=== PATIENT | female | born 1985 | race Caucasian/White ===

== ENCOUNTER 2016-06-30 22:50 | Inpatient (IN) ==
--- NOTE | 2016-06-30 23:06 | PROVIDER DOCUMENTATION ---
HPI-Female /OB/Breast - General Stated Complaint: PREG Time Seen by Provider: 06/30/16 23:03 Source: reports: patient, family Allergies/Adverse Reactions: Patient Allergies Allergy/AdvReac Type Severity Reaction Status Date / Time No Known Allergies Allergy Verified 06/30/16 23:04 Home Medications: Home Medication List Medication Instructions Recorded Confirmed Last Taken Type No Home Medications 06/30/16 06/30/16 Unknown History - History of Present Illness-Female /OB Nature of Presenting Problem: 31 year old WF, , LMP 5 yrs ago, approximately 7 mo gestation, no care, presents with c/o low abd pain, vaginal bleeding. Pt in mild distress with discomfort. Does patient report she is ?: Yes Quality of Pain: reports: dull Severity in ED: reports: moderate, severe Onset/Duration: reports: 4-6 hours ago Timing: reports: still present, constant, getting worse Context/Activities at Onset: reports: none Vaginal Symptoms: reports: abnormal bleeding, discharge Vaginal Bleeding Amount: Scant Related Symptoms: reports: vaginal fluid leakage, uterine contractions , pelvic pain, vaginal bleeding, abdominal pain Leakage of Fluid: uncertain Contraception: reports: none Similar Symptoms Previously?: Yes Recently seen or treated by another doctor?: No - LMP/ History Menstrual Status: abnormal period(s) : 6 Para: 3 : 2 Prior Delivery: vaginal Care: none Review of Systems - Adult - REVIEW OF SYSTEMS - ADULT Constitutional: reports: no symptoms reported. denies: chills, fever, fatique Eyes: reports: no symptoms reported. denies: discharge, blurred vision, double vision, redness Ears, Nose, Mouth & Throat: reports: no symptoms reported. denies: ear discharge, ear pain, nose pain, loose teeth, throat pain, throat swelling Cardiovascular: reports: no symptoms reported. denies: chest pain, palpitations , syncope Respiratory: reports: no symptoms reported. denies: chronic cough, cough, shortness of breath, wheezing Gastrointestinal: reports: see HPI, abdominal pain. denies: hematemesis, constipation, diarrhea, difficulty swallowing, frequent heartburn, nausea, poor appetite, rectal bleeding, vomiting Genitourinary: reports: see HPI, other. denies: dysuria, discharge, frequency, flank pain, frequent UTI's, hematuria, hesitency, incontinence, urinary retention, urgency Musculoskeletal: reports: no symptoms reported. denies: bone pain, joint pain, joint swelling, neck pain Integumentary: reports: no symptoms reported. denies: hives, itching, rash, skin sores/ulcer Neurological: reports: no symptoms reported Psychiatric: reports: no symptoms reported Endocrine: reports: no symptoms reported Hematologic/Lymphatic: reports: no symptoms reported Allergic/Immunologic: reports: no symptoms reported All Other Systems: Reviewed and Negative Past History - Adult - PAST MEDICAL HISTORY-ADULT Review of Records: reports: Old Records Reviewed, Nursing Assessment Review, Medications Reviewed, Social history reviewed & non-contributory. Major Childhood Illnesses: reports: denies history Cardiovascular: reports: denies history Respiratory: reports: denies history Gastrointestinal: reports: denies history Obstetrical/Gynecological: reports: denies history Genitourinary: reports: denies history Musculoskeletal: reports: denies history Neurological: reports: denies history Endocrine/Immune: reports: denies history Other Conditions: reports: denies history - FAMILY HISTORY Family History: reviewed, not pertinent - SOCIAL HISTORY Smoking: cigarettes Provider spent 3-5 mins advising pt. on dangers of tobacco.: Discussed manners to quit use, and f/u contacts for add'l counseling. Substance Use: none/never Alcohol Use Frequency: never Physical Exam-General - PHYSICAL EXAM-ADULT Initial Vital Signs Reviewed: Yes - CONSTITUTIONAL General Appearance: appears well, alert, mild distress. negative: no apparent distress, moderate distress - EYES Eyes: pink conjunctivae. negative: conjuctival exudate - HEAD, EARS, NOSE, MOUTH & THROAT HENMT: normocephalic/atraumatic, moist mucous membranes, normal ENT inspection - NECK Neck: non-tender, full range of motion, supple, normal inspection - RESPIRATORY Respiratory: chest non-tender, lungs clear, normal breath sounds, no pleuratic chest pain, no respiratory distress, no accessory muscle use - CARDIOVASCULAR Cardiovascular: normal peripheral pulses, regular rate, rhythm, no edema, no gallop, no JVD, no murmur - CHEST (BREASTS) Chest/Breast: deferred - GASTROINTESTINAL (ABDOMEN) Abdominal Exam: tenderness - GENITOURINARY Female Genitalia/Pelvic Exam: external exam normal, active bleeding, blood, discharge, tender uterus, other (bimanual exam not performed due to vaginal bleeding with .) Rectal Exam: deferred Hemoccult Exam: deferred - LYMPHATIC Lymphatic: no adenopathy - MUSCULOSKELETAL Back Exam: normal inspection, no CVA tenderness, no vertebral tenderness. negative: CVA tenderness, decreased range of motion, vertebral tenderness Extremity: normal range of motion, non-tender, normal gait, normal inspection, no pedal edema, no calf tenderness, normal capillary refill. negative: deformity, erythema, inflammation, joint effusion Peripheral Pulses: radial (R): 3+, radial (L): 3+, dorsalis-pedis (R): 3+, dorsalis-pedis (L): 3+ - SKIN Integumentary: normal color, normal turgor, warm/dry - NEUROLOGIC Neurologic: grossly normal, no motor/sensory deficits. negative: focal weakness , motor weakness, sensory deficit - PSYCHIATRIC Psych/Mental Status: normal mood/affect, normal thought content, normal thought process, oriented x 3 Progress - PLAN OF CARE/RESULTS Progress/Plan/Lab Results: Vital Signs - 24 hr 06/30/16 23:03 Temperature 98.0 F Pulse Rate 107 H Respiratory 24 Rate Blood Pressure 136/91 O2 Sat by Pulse 97 Oximetry heart tones and movement confirmed with bedside ultrasound. Reviewed case with Dr. Marie prior to transfer. Departure - Departure Time of Disposition Order: 23:03 DIAGNOSIS: Vaginal bleeding Qualifiers: Weeks of gestation: unspecified Qualified Code(s): Z33.1 - state, incidental Disposition: [place] [id number] Certified Medical Emergency: Emergent Condition: Stable Attestation - Physician/ DANE Attestation Patient care was provided by Advanced Practice Provider:: Yes Advanced Practice Provider:: Bhavesh Schaefer Advanced Practice Provider documentation review:: The Mid-level provider documentation, treatment plan and medical decision making was reviewed by the physician who agrees with all treatment and medical decision making by the P.
[2016-06-30] MEDS: NS 1,000 ML IV ONE ×2 (23:11→23:57)
[2016-06-30] MEDS ORDERED: NS 1,000 ML ONE (23:16)
[2016-06-30] MEDS ORDERED: PEPCID PO ONE (23:53)
[2016-06-30] MEDS ORDERED: KEFZOL 1 GM/D5W 50 ML IV PRN (23:53)
[2016-06-30] MEDS ORDERED: REGLAN PO ONE (23:53)
[2016-06-30] MEDS ORDERED: BICITRA PO ONE (23:57)
[2016-06-30] MEDS ORDERED: SODIUM CHLORIDE 0.9% INJ ONE (23:58)
[2016-06-30] MEDS ORDERED: PEPCID IV ONE (23:58)
[2016-07-01 00:12] LABS: MANUAL DIFF NEEDED? NO
[2016-07-01 00:15] LABS: BASO% 0.1 % (0.0-0.8); EOS# 0.04 X1000 (0.0-0.7); EOS% 0.2 % (0.0-10.0); HEMATOCRIT 32.9 % (37.0-47.0); HEMOGLOBIN 11.2 g/dL (12.0-16.0); IMM GRAN% 0.6 % (0.0-0.5); LYMPH# 1.58 X1000 (1.2-3.4); LYMPH% 8.7 % (20.5-51.1); MCH 27.7 PG (27-31); MCV 81.4 FL (81-99); MONO# 1.76 X1000 (0.11-0.59); MONO% 9.7 % (1.7-9.3); MPV 10.1 FL (7.4-10.4); NEUT% 80.7 % (42.2-75.2); PLT 195 X1000 (130-400); RBC 4.04 XMIL (4.2-5.4)
[2016-07-01] MEDS ORDERED: PITOCIN ONE ×3 (00:21→01:22)
[2016-07-01] MEDS ORDERED: DURAMORPH ONE (00:21)
[2016-07-01 00:29] LABS: URINE SOURCE CLEAN CATCH
[2016-07-01 00:42] LABS: RAPID HIV PRESUMPTIVE NEGATIVE
[2016-07-01 00:53] LABS: BILIRUBIN URINE NEGATIVE (NEGATIVE); BLOOD URINE NEGATIVE (NEGATIVE); CLARITY CLEAR (CLEAR); COLOR YELLOW; GLUCOSE URINE NEGATIVE (NEGATIVE); LEUKOCYTES URINE TRACE (NEGATIVE); NITRITE URINE NEGATIVE (NEGATIVE); PROTEIN URINE 1+(30 mg/dL) mg/dL (NEGATIVE); UROBILINOGEN URINE 4+(12 mg/dL)
[2016-07-01 00:57] LABS: UR AMPHETAMINES QUAL PRESUMPTIVE POSITIVE (NONE DETECT); UR BARBITUATES QUAL NONE DETECTED (NONE DETECT); UR BENZODIAZEPIN QUAL PRESUMPTIVE POSITIVE (NONE DETECT); UR CANNABINOIDS QUAL NONE DETECTED (NONE DETECT); UR COCAINE QUAL NONE DETECTED (NONE DETECT); UR MDMA QUAL PRESUMPTIVE POSITIVE (NONE DETECT); UR METHADONE QUAL NONE DETECTED (NONE DETECT); UR METHAMPHETAMINE QUAL PRESUMPTIVE POSITIVE (NONE DETECT); UR OPIATES QUAL NONE DETECTED (NONE DETECT); UR OXYCODONE QUAL PRESUMPTIVE POSITIVE (NONE DETECT); UR PCP QUAL NONE DETECTED (NONE DETECT); UR TCA QUAL NONE DETECTED (NONE DETECT)
[2016-07-01] MEDS ORDERED: TORADOL ONE (01:19)
[2016-07-01] MEDS ORDERED: VERSED ONE (01:19)
[2016-07-01] MEDS ORDERED: DEMEROL PO PRN (01:25)
[2016-07-01] MEDS ORDERED: BOOSTRIX VACCINE IM ONE (01:25)
[2016-07-01] MEDS ORDERED: DEMEROL IM PRN (01:25)
[2016-07-01] MEDS ORDERED: HYDROXYZINE PO PRN (01:25)
[2016-07-01] MEDS ORDERED: DULCOLAX PR PRN (01:25)
[2016-07-01] MEDS ORDERED: CYTOTEC PO PRN (01:25)
[2016-07-01] MEDS ORDERED: MYLICON PO PRN (01:25)
[2016-07-01] MEDS ORDERED: AMBIEN PO PRN (01:25)
[2016-07-01] MEDS ORDERED: PHENERGAN IM PRN (01:25)
[2016-07-01] MEDS ORDERED: MOTRIN PO PRN (01:25)
[2016-07-01] MEDS ORDERED: M-M-R II VACCINE SUBQ ONE (01:25)
[2016-07-01] MEDS ORDERED: HYDROXYZINE IM PRN (01:25)
[2016-07-01] MEDS ORDERED: PITOCIN 20 UNITS/LR 1,000 ML IV ONE (01:25)
[2016-07-01] MEDS ORDERED: PITOCIN IM PRN (01:25)
[2016-07-01] MEDS ORDERED: PITOCIN 10 UNITS/LR 1,000 ML IV SCH (01:30)
[2016-07-01] MEDS ORDERED: BENADRYL IV PRN (02:45)
[2016-07-01] MEDS ORDERED: ZOFRAN IV PRN ×2 (02:45)
[2016-07-01] MEDS ORDERED: NARCAN INJ PRN (02:45)
[2016-07-01] MEDS ORDERED: MORPHINE IV PRN (02:46)
[2016-07-01] MEDS: TORADOL IV SCH ×5 (04:43→19:02)
[2016-07-01] MEDS: MYLICON PO SCH ×4 (10:12→21:51)
[2016-07-01] MEDS ORDERED: SODIUM CHLORIDE 0.9% 10 ML ONE (13:02)
[2016-07-01] MEDS: SODIUM CHLORIDE 0.9% INJ SCH ×2 (13:17→18:55)
[2016-07-01] MEDS: DEMEROL PO PRN ×2 (13:41→21:52)
[2016-07-01] MEDS: ZOFRAN ODT PO PRN ×2 (13:42→21:52)
[2016-07-01 15:41] LABS: RPR NON-REACTIVE (NONREACTIVE); RUBELLA SCREEN IMMUNE (IMMUNE)
[2016-07-01] MEDS: LR 1,000 ML IV SCH (18:53)
[2016-07-01] MEDS ORDERED: PERICOLACE PO SCH (21:00)
[2016-07-02] MEDS ORDERED: LR 1,000 ML IV SCH (01:25)
[2016-07-02] MEDS: DEMEROL PO PRN ×3 (04:29→08:34)
[2016-07-02 05:53] LABS: MANUAL DIFF NEEDED? NO
[2016-07-02 06:09] LABS: BASO% 0.1 % (0.0-0.8); EOS# 0.14 X1000 (0.0-0.7); EOS% 0.9 % (0.0-10.0); HEMATOCRIT 28.6 % (37.0-47.0); HEMOGLOBIN 9.3 g/dL (12.0-16.0); IMM GRAN# 0.07 X1000 (0.0-0.04); IMM GRAN% 0.5 % (0.0-0.5); LYMPH# 2.11 X1000 (1.2-3.4); LYMPH% 13.6 % (20.5-51.1); MCH 27.3 PG (27-31); MCHC 32.5 g/dL (33-37); MCV 83.9 FL (81-99); MONO# 0.99 X1000 (0.11-0.59); MONO% 6.4 % (1.7-9.3); MPV 9.8 FL (7.4-10.4); NEUT% 78.5 % (42.2-75.2); PLT 211 X1000 (130-400); RBC 3.41 XMIL (4.2-5.4)
[2016-07-02] MEDS: MYLICON PO SCH (08:31)
[2016-07-02 08:38] VITALS: BP 104/69
--- NOTE | 2016-07-02 11:12 | OPERATIVE NOTE ---
PROCEDURE DATE : 06/30/2016 PREOPERATIVE DIAGNOSES: 1. 32 week gestation, breech presentation, in labor. 2. Drug abuse. 3. No care. POSTOPERATIVE DIAGNOSES: 1. 32 week gestation, breech presentation, in labor. 2. Drug abuse. 3. No care. SURGEON: Dr. David Miranda FINANCIAL OPERATIONS CONSULTANT: None. INDICATION: This is a 31-year-old G4, P3, currently at 32 weeks gestation with no care. She presented in labor, 6 to 7 cm, noted to be breech presentation on ultrasound. She was taken for semi-emergent section. DESCRIPTION OF PROCEDURE: After informed consent, she was taken to the operating room and prepped and draped in the usual sterile fashion. A low transverse Pfannenstiel incision was made after the anesthetic was tested and deemed to be adequate. Low transverse Pfannenstiel incision was made and carried down through the subcutaneous tissue to the fascia. The fascia was nicked in the midline and extended superiorly and laterally on both sides. The abdominal cavity was entered bluntly without incident. Low transverse uterine incision was then made. The was noted to be dameon breech and delivered without complications. Bulb suctioned on the maternal abdomen and then passed off to attendants. Cord blood was gathered. The placenta was externalized and passed off the solano. The uterus was externalized and closed with 0 Vicryl x2. There were no complications. The uterus was put back in place. Copious irrigation was performed. The peritoneum was closed with 3-0 Vicryl. Muscle layers were bovied for hemostasis. The fascia was closed with 0 Vicryl x2. Subcutaneous tissue was bovied, and the skin was closed with sloan, dressed with a 4 x 4 and tape. The patient was taken to the recovery room, the to the nursery, to be transferred to the NICU in [place]. The 's weight was 3 pounds 11 ounces, Apgars of 1 and 7. Estimated blood loss was 650 mL. There were no complications. Specimens sent to pathology were placenta and cord.
[2016-07-03 11:00] LABS: HEPATITIS B SURFACE ANTIGEN SEE COMMENTS (())
[2016-07-03 11:00] LABS: HIV ANTIBODY SCREEN SEE COMMENTS (())
== END 2016-07-02 10:50 | disposition home or self-care (01) | DRG 765 ==
LOC: ED 22:50 → P.LD 23:30
PROVIDERS: ADMIT Obstetrics & Gynecology; ATTEND Obstetrics & Gynecology
PROC: 10D00Z1 Extraction of Products of Conception, Low, Open Approach (ICD-10-PCS; principal; 2016-06-30)
DX: O32.1XX0 Maternal care for breech presentation, not applicable or unspecified (principal); O60.14X0 Preterm labor third trimester with preterm delivery third trimester, not applicable or unspecified; O99.324 Drug use complicating childbirth; F11.10 Opioid abuse, uncomplicated; F15.10 Other stimulant abuse, uncomplicated; F13.10 Sedative, hypnotic or anxiolytic abuse, uncomplicated; F19.10 Other psychoactive substance abuse, uncomplicated; Z3A.31 31 weeks gestation of pregnancy; Z37.0 Single live birth; F17.210 Nicotine dependence, cigarettes, uncomplicated; O99.334 Smoking (tobacco) complicating childbirth
CPT/HCPCS: 59025; 76815; 80305; 81003; 82947; 85025; 86592; 86701; 86703; 86762; 86850; 86900; 86901; 87340; 87491; 87591; J0690; J1885; J2250; J2274; J2590; J7030; S0028